=== PATIENT | female | born 1995 | race Two or more races ===

== ENCOUNTER 2018-04-21 17:02 | Emergency (ER) | payer BC ==
--- NOTE | 2018-04-21 18:40 | CPEKG ---
Test Reason : OPEN Blood Pressure : / mmHG Vent. Rate : 099 BPM Atrial Rate : 095 BPM P-R Int : 138 ms QRS Dur : 091 ms QT Int : 331 ms P-R-T Axes : 050 064 015 degrees QTc Int : 425 ms Sinus rhythm Borderline T wave abnormalities Confirmed by Robb Ferguson ([id number]), film editor supervisor Nestor Wagner ([id number]) on 04/21/2018 6:39:33 PM Referred By: Confirmed By:Robb Ferguson
--- NOTE | 2018-04-21 18:52 | EDPHY ---
H & P Stated Complaint: INTERMITTENT IRREGULAR PULSE RATE OVER LAST FEW MONTHS Time Seen by Provider: 04/21/18 18:38 HPI/ROS: CHIEF COMPLAINT: Palpitations HISTORY OF PRESENT ILLNESS: The patient is a 22-year-old female who comes to the emergency department complaining of palpitations intermittently over the last several weeks. She states that they are very brief lasting less than a 2nd. No chest pain. No shortness of breath. No lightheadedness. No recent substance abuse. Severity: Moderate Modifying factors: None REVIEW OF SYSTEMS: Constitutional: denies: chills, fever, recent illness, recent injury EENTM: denies: blurred vision, double vision, nose congestion Respiratory: denies: cough, shortness of breath Cardiac: denies: chest pain, irregular heart rate, lightheadedness, palpitations Gastrointestinal/Abdominal: denies: abdominal pain, diarrhea, nausea, vomiting, blood streaked stools Genitourinary: denies: dysuria, frequency, hematuria, pain Musculoskeletal: denies: joint pain, muscle pain Skin: denies: lesions, rash, jaundice, bruising Neurological: denies: headache, numbness, paresthesia, tingling, dizziness, weakness Hematologic/Lymphatic: denies: blood clots, easy bleeding, easy bruising Immunologic/allergic: denies: HIV/AIDS, transplant 10 systems reviewed and negative except as noted EXAM: GENERAL: Well-appearing, well-nourished and in no acute distress. HEAD: Atraumatic, normocephalic. EYES: Pupils equal round and reactive to light, extraocular movements intact, sclera anicteric, conjunctiva are normal. ENT: TMs normal, nares patent, oropharynx clear without exudates. Moist mucous membranes. NECK: Normal range of motion, supple without lymphadenopathy or JVD. LUNGS: Breath sounds clear to auscultation bilaterally and equal. No wheezes rales or rhonchi. HEART: Regular rate and rhythm without murmurs, rubs or gallops. ABDOMEN: Soft, nontender, normoactive bowel sounds. No guarding, no rebound. No masses appreciated. BACK: No CVA tenderness, no spinal tenderness, step-offs or deformities EXTREMITIES: Normal range of motion, no pitting or edema. No clubbing or cyanosis. NEUROLOGICAL: Cranial nerves II through XII grossly intact. Normal speech, normal gait. 5/5 strength, normal movement in all extremities, normal sensation , normal reflexes PSYCH: Normal mood, normal affect. SKIN: Warm, dry, normal turgor, no visible rashes or lesions. Source: Patient Exam Limitations: No limitations - Personal History LMP (Females 10-55): Now Current Tetanus Diphtheria and Acellular Pertussis (TDAP): Yes - Medical/Surgical History Hx Asthma: No Hx Chronic Respiratory Disease: No Hx Diabetes: No Hx Cardiac Disease: No Hx Renal Disease: No Hx Cirrhosis: No Hx Alcoholism: No Hx HIV/AIDS: No Hx Splenectomy or Spleen Trauma: No Other PMH: DENIES - Family History Significant Family History: No pertinent family hx - Social History Smoking Status: Never smoked Alcohol Use: Sober Drug Use: None Constitutional: Initial Vital Signs Temperature (C) 36.7 C 04/21/18 17:09 Heart Rate 100 04/21/18 17:09 Respiratory Rate 18 04/21/18 17:09 Blood Pressure 124/94 H 04/21/18 17:09 O2 Sat (%) 95 04/21/18 17:09 O2 Delivery Mode Room Air Allergies/Adverse Reactions: No Known Allergies Allergy (Unverified 04/21/18 17:08) Home Medications: Medication Instructions Recorded Mylan 04/21/18 Medical Decision Making - Diagnostics EKG Interpretation: An EKG obtained and was read and documented in trace view. Please see trace view for full reading and report. Sinus rhythm, no acute ischemic changes ED Course/Re-evaluation: I reviewed the last hour of the patient's monitor strip. She did have a single PVC. I discussed this. It does likely a source of her brief palpitations. She will follow up with her doctor in [place] if she has persistent symptoms. She will aiso follow up with Kira here. We discussed wearing Holter monitors if necessary. We discussed indications for returning to the emergency department. She feels comfortable with this plan and reassured general and is eager to go home. Differential Diagnosis: Partial list of the Differential diagnosis considered include but were not limited to; palpitations, PVC, Pac, anxiety, substance abuse and although unlikely based on the history and physical exam, I also considered infection, acute coronary disease, AFib, SVT. I discussed these differential diagnoses and the plan with the patient as well as the usual and expected course. The patient understands that the diagnosis is provisional and that in medicine we are not always correct and that further workup is often warranted. Usual and customary warnings were given. All of the patient's questions were answered. The patient was instructed to return to the emergency department should the symptoms at all worsen or return, otherwise to followup with the physician as we discussed. Departure - Departure Disposition: Home, Routine, Self-Care Clinical Impression: PVC (premature ventricular contraction) Condition: Fair Instructions: Premature Ventricular Contractions (ED) Referrals: NONE *PRIMARY CARE P,. [Primary Care Provider] - As per Instructions [facility],. [Clinic] - 3-4 days, if not improved
[2018-04-21 19:01] VITALS: BP 141/96
== END 2018-04-21 19:02 | disposition home or self-care (01) ==
DX: I49.3 Ventricular premature depolarization (principal)